=== PATIENT | male | born 1945 | race Caucasian/White ===

== ENCOUNTER 2017-01-17 13:54 | Emergency (ER) | payer OTHER ==
[~2017-01-17] VITALS: Ht 180.3 cm; Wt 114.3 kg
[~2017-01-17 13:54] MED LIST: ADULT LOW DOSE81 MG PO; ASPIRIN EC81 M1 PO; BENICAR; BENICAR HCT 401 EAC1 PO; HYDROCODON-ACE1 EAC8; MICARDIS 80 MG80 MG PO; MICARDIS HCT 81 EAC1 PO; MICARDIS HCT 81 EACH PO; PHENERGAN 25 MG25 M1 PO; POTASSIUM20; PROTANDEM; PROTANDUM; SENNA; TRAMADOL 50 MG50 MG PO; TRAZODONE 150150 M1 PO; UNISOM SLEEP AI25 MG PO
[2017-01-17] MEDS ORDERED: ZESTORETIC 20-1 EAC3 PO (15:27)
[2017-01-17 15:39] LABS: WBC 4.6 thou/uL (4.0-11.0)
[2017-01-17 15:41] LABS: ABSOLUTE NEUTROPHILS 3.5 thou/uL (1.4-8.2); BASOPHILS 0.4 % (0.0-2.0); EOSINOPHILS 0.2 % (0.0-3.0); HEMATOCRIT 48.4 % (42.0-52.0); HEMOGLOBIN 16.8 gm/dL (14.0-18.0); LYMPHOCYTES 11.5 % (24.0-44.0); MCHC 34.6 g/dL (28.0-37.0); MCV 86.7 fL (80.0-100.0); MONOCYTES 11.5 % (1.0-8.0); PLATELET COUNT 163 thou/uL (150-400); POLYS 76.4 % (36.0-66.0); RBC 5.59 mil/uL (4.50-6.00); RDW 14.4 % (10.5-14.5)
[2017-01-17 15:42] LABS: MANUAL DIFF NO
[2017-01-17 15:54] LABS: CALCIUM 8.4 mg/dL (8.5-10.1); CREATININE 1.3 mg/dL (0.7-1.3); POTASSIUM 3.7 mmol/L (3.5-5.1)
[2017-01-17 16:00] LABS: URINE BILIRUBIN NEGATIVE (Negative); URINE BLOOD NEGATIVE (Negative); URINE COLOR YELLOW; URINE GLUCOSE-RANDOM* NEGATIVE (Negative); URINE KETONES NEGATIVE (Negative); URINE NITRITE NEGATIVE (Negative); URINE PROTEIN (DIPSTICK) TRACE (Negative); URINE SPECIFIC GRAVITY >= 1.030 (1.003-1.035); URINE UROBILINOGEN 0.2 E.U./dl (0.2-1.0)
[2017-01-17] MEDS ORDERED: REGLAN 10 MG TA10 MG PO (16:42)
[2017-01-17] MEDS ORDERED: LOMOTIL TABLET1 EACH PO (16:42)
== END 2017-01-17 16:57 | disposition home or self-care (01) ==
LOC: ER 13:54
PROVIDERS: Emergency Medicine
DX: R11.2 Nausea with vomiting, unspecified (principal); R19.7 Diarrhea, unspecified; R10.9 Unspecified abdominal pain; I10 Essential (primary) hypertension; Z90.49 Acquired absence of other specified parts of digestive tract; Z95.5 Presence of coronary angioplasty implant and graft; Z96.641 Presence of right artificial hip joint; Z96.611 Presence of right artificial shoulder joint

== ENCOUNTER 2020-05-09 09:54 | Inpatient (IN) | payer OTHER ==
[~2020-05-09] VITALS: Ht 177.8 cm; Wt 110.2 kg
--- NOTE | ~2020-05-09 | EKG ---
[facility] [place] [address] ELECTROCARDIOGRAM REPORT Name: JLYUDI GILLIAMON Room #: REG [facility].#: [id number] Admission: 05/09/20 Attend Phys: Discharge: Date of : 47 Report #: [id number] THIS REPORT FOR: cc: Ernst Little MD, James A. MD Epiphany,Michael WALTERS ~ THIS REPORT FOR: //name// [facility] ED Test Date: 2020-05-09 Test Time: 10:38:31 Pat Name: YUDI PARIKH Department: Room: Gender: M Verifier Operator: jaimee : 1945 Requested By: Adebayo Edmond Order Number: [id number] MD: Measurements Intervals [place] Rate: 64 P: 0 IA: 246 QRS: -65 QRSD: 129 T: 76 QT: 414 QTc: 427 Interpretive Statements Sinus rhythm Prolonged IA interval Left bundle branch block Compared to ECG 10/16/2015 17:22:13 Left-axis deviation no longer present [email or web address] By: 1038 [facility] Epiphany EpiphanyMD /EPI
[~2020-05-09 09:54] MED LIST changes: +LOMOTIL TABLET1 EACH PO; +REGLAN 10 MG TA10 MG PO; +ZESTORETIC 20-1 EAC3 PO
[2020-05-09 09:57] VITALS: BP 190/102
[2020-05-09 10:33] LABS: ABSOLUTE NEUTROPHILS 2.9 thou/uL (1.4-8.2); BASOPHILS 0.7 % (0.0-2.0); EOSINOPHILS 1.8 % (0.0-3.0); HEMATOCRIT 49.4 % (42.0-52.0); HEMOGLOBIN 16.4 gm/dL (14.0-18.0); LYMPHOCYTES 28.1 % (24.0-44.0); MCH 27.9 pg (26.0-34.0); MCHC 33.3 g/dL (28.0-37.0); MCV 83.7 fL (80.0-100.0); MONOCYTES 10.1 % (1.0-8.0); PLATELET COUNT 224 thou/uL (150-400); POLYS 59.3 % (36.0-66.0); RDW 14.4 % (10.5-14.5); WBC 4.9 thou/uL (4.0-11.0)
[2020-05-09 10:56] LABS: APTT 32.1 Seconds (24.5-32.8); INR 1.1; PROTIME 10.8 Seconds (9.3-11.4)
[2020-05-09] MEDS ORDERED: LOSARTAN POTASS50 MG PO (11:00)
[2020-05-09 11:11] LABS: CALCIUM 9.3 mg/dL (8.5-10.1); POTASSIUM 4.1 mmol/L (3.5-5.1)
[2020-05-09] MEDS ORDERED: SILDENAFIL CIT100 MG PO (11:17)
[2020-05-09 12:58] VITALS: BP 146/99
[2020-05-09 13:15] LABS: CHOLESTEROL 162 mg/dL (<200); HDL CHOLESTEROL 40 mg/dL (>40); LDL CHOLESTEROL 97 mg/dL (<100); TC:HDL 4.1 Ratio (Not establshd); TRIGLYCERIDE 125 mg/dL (<150); VLDL 25 mg/dL (<40)
[2020-05-09 13:16] LABS: SERUM ASSESSMENT Clear
[2020-05-09 13:52] VITALS: BP 147/99
[2020-05-09 14:00] VITALS: BP 156/100
[2020-05-09 15:45] VITALS: BP 144/94
--- NOTE | 2020-05-09 16:41 | NUR ---
ARRIVES FROM ED VIA W/C, ALERT AND ORIENTED X4. PLAESANT AND NIHS AT 3. DBP ELEVATED, AND S/B DR NEUROLOGIST. OTHER VSS, ASSESSMENT CHARTED AND NEW POC INITIATED AND WILL CONTINUE TO MONITOR.
[2020-05-09 20:00] VITALS: BP 147/96
[2020-05-10] VITALS (7 sets, daily range): BP systolic 149–163; BP diastolic 68–108
--- NOTE | 2020-05-10 03:57 | NUR ---
PATIENT IS PROGRESSING SLOWLY IN HIS CARE PLAN. PATIENT HAS BEEN SLIGHTLY HYPERTENSIVE WITH ALL OTHER VITAL SIGNS STABLE. COMPLAINTS OF PAIN AND NAUSEA TREATED APPROPRIATELY THROUGH MEDICATIONS. PATIENT IS COMPLETELY ORIENTED AND ABLE TO CALL APPROPRIATELY FOR NEEDS. UP MULTIPLE TIMES TO BATHROOM WITH STANDBY ASSIST INCIDENT FREE. PATIENT IS TO HAVE MRI OF BRAIN TODAY. CONTINUE PLAN OF CARE.
--- NOTE | 2020-05-10 17:27 | NUR ---
ASSUMED CARE AT SHIFT CHANGE, ALERT AND ORIENTED X4. ASSESSMENT CHARTED. BP REMAINS HIGH, SR CRAWFORD NOTIFIED NEW MEDS ORDERS RECIEVED, AND GIVEN BP IS TRENDING DOWN. AND WILL CONTINUE WITH POC.
--- NOTE | 2020-05-11 04:41 | NUR ---
PATIENT IS PROGRESSING IN HIS CARE PLAN. VITAL SIGNS STABLE WITH PATIENT HAVING NO COMPLAINTS OF PAIN, NAUSEA, OR DIZZINESS THROUGHOUT SHIFT. FULLY ORIENTED, PATIENT IS ABLE TO CALL APPROPRIATELY FOR NEEDS AND PARTICIPATE IN CARE PLAN. PATIENT CLEARED FROM HIGH FALL RISK ON SHIFT DUE TO INCREASED STRENGTH AND ABSENCE OF SYMPTOMS AND IS UP AD CEDRIC. BLOOD PRESSURES REMAIN ELEVATED BUT NOT REQUIRING PRN MEDICINE. PATIENT SAYS HIS ANXIETY IS "BETTER" THROUGH PRN XANAX, AND IS READY FOR HIS MRI THIS MORNING. CONTINUE PLAN OF CARE.
[2020-05-11 05:00] VITALS: BP 149/84
[2020-05-11 07:42] VITALS: BP 161/92
--- NOTE | 2020-05-11 08:11 | EKG ---
[facility] [place] [address] ELECTROCARDIOGRAM REPORT Name: YUDI PARIKH Room #: 201-P ADM IN M.R.#: [id number] Admission: 05/09/20 Attend Phys: Susy Adler Discharge: Date of : 47 Report #: [id number] THIS REPORT FOR: cc: Ernst Little MD, James A. MD Santiago, Patrick MD [facility] ~ THIS REPORT FOR: //name// [facility] ED Test Date: 2020-05-09 Test Time: 10:38:31 Pat Name: YUDI PARIKH Department: Room: 201 Gender: M South Asian History Professor: [facility] : 1945 Requested By: Adebayo Edmond Order Number: [id number] MD: Min Armando Measurements Intervals [place] Rate: 64 P: 0 VA: 246 QRS: -65 QRSD: 129 T: 76 QT: 414 QTc: 427 Interpretive Statements Sinus rhythm Prolonged VA interval Left bundle branch block Compared to ECG 10/16/2015 17:22:13 Left-axis deviation no longer present Electronically Signed On 05-11-2020 8:11:25 CDT by Min Armando [email or web address] <ELECTRONICALLY SIGNED> By: Min Armando MD, FACC 05/11/20 0811 1038 1038 Min Armando MD, [facility] /EPI
[2020-05-11] MEDS ORDERED: SERTRALINE HCL50 MG PO (08:12)
[2020-05-11] MEDS ORDERED: COZAAR 50 MG TA50 M1 PO (08:12)
[2020-05-11] MEDS ORDERED: ASA81BEC PO (08:13)
[2020-05-11 12:56] VITALS: BP 148/94
[2020-05-11] MEDS ORDERED: CYMBALTA30 MG PO (15:07)
[2020-05-11] MEDS ORDERED: ASPIRIN325 PO (15:07)
[2020-05-11 15:20] VITALS: BP 145/86
--- NOTE | 2020-05-11 15:54 | NUR ---
INITIAL ASSESSMENT: Received consult. SW reviewed chart and spoke with nursing. Pt was admitted from home due to possible TIA/CVA. Pt with headaches and high BP. Neuro consulted. SW met with pt at bedside. Introduced role of SW. Pt is alert/orientated x 4. Pt lives at home with his . Prior to admission, pt was independent with ADLs. No use of DME. Pt does have a cane at home. 2 steps to enter the home and a total of 14 stairs inside. Pt had recent knee surgery and did have HH services. Pt unsure of name of HH provider. Pt's PCP is Dr. Ernst Little. Plan is for pt to return home when medically stable. SW is following to assist as needed with discharge planning.
--- NOTE | 2020-05-11 16:14 | 2DMMODE ---
[facility] [address] 2 D/M-MODE ECHOCARDIOGRAM Name: YUDI PARIKH Room #: 201-P ADM IN M.R.#: [id number] Admission: 05/09/20 Attend Phys: Susy Adler Discharge: Date of : 47 Report #: [id number] THIS REPORT FOR: cc: Ernst Little MD, James A. MD Lundgren, Craig H. MD [facility] ~ APPROVED REPORT Study performed: 05/11/2020 13:31:45 EXAM: Comprehensive 2D, Doppler, and color-flow Echocardiogram Patient Location: Echo lab Room #: 201 Status: routine BSA: 2.29 HR: 67 bpm BP: 161/92 mmHg Rhythm: NSR Other Information Study Quality: Adequate Indications Hypertension/HDD CVA Echo Enhancing Agent Indication: Rule out Shunt Agent(s) / Amount(s) Used: Agitated Saline 6 cc 2D Dimensions RVDd: 37.56 mm IVSd: 16.01 (7-11mm) LVOT Diam: 22.79 (18-24mm) LVDd: 44.64 mm PWd: 16.28 (7-11mm) Ascending Ao: 38.33 (22-36mm) LVDs: 29.99 (25-40mm) Aortic Root: 35.47 mm IVC: 22.00 mm Volumes Left Atrial Volume (Systole) Single Plane 4CH: 62.09 mL Single Plane 2CH: 60.42 mL LA ESV Index: 28.00 mL/m2 Aortic Valve [facility] [address] [address] 2 D/M-MODE ECHOCARDIOGRAM Name: YUDI PARIKH Room #: 201-P [facility] IN .R.#: [id number] Admission: 05/09/20 Attend Phys: Susy Ruiz Discharge: Date of : 47 Report #: [id number] AoV Peak Austen.: 2.39 m/s AO Peak Gr.: 22.80 mmHg LVOT Max P.49 mmHg AO Mean Gr.: 11.12 mmHg LVOT Mean P.32 mmHg AO V2 Mean: 1.52 m/s LVOT Max V: 1.05 m/s AO V2 VTI: 48.26 cm LVOT Mean V: 0.69 m/s LIZETTE (VTI): 2.03 cm2 LVOT V1 VTI: 24.05 cm LIZETTE Vmax: 1.80 cm2 SV (LVOT): 98.10 mL Mitral Valve E/A Ratio: 0.7 MV Decel. Time: 229.91 ms MV E Max Austen.: 0.71 m/s MV A Austen.: 0.96 m/s MV PHT: 66.68 ms IVRT: 128.03 ms Pulmonary Valve PV Peak Austen.: 1.09 m/s PV Peak Gr.: 4.79 mmHg Pulmonary Vein P Vein S: 0.48 m/s P Vein A: 0.27 m/s P Vein D: 0.44 m/s P Vein A Dur.: 114.2 msec P Vein S/D Ratio: 1.09 Left Ventricle The left ventricle is normal size. There is normal LV segmental wall motion. Moderate concentric left ventricular hypertrophy. The left ventricular systolic function is normal. The left ventricular ejection fraction is within the normal range. LVEF is 60-65%. Mild diastolic dysfunction is present (impaired relaxation pattern). Right Ventricle The right ventricle is normal size. The right ventricular systolic function is normal. Atria The left atrium size is normal. No shunting by contrast bubble injection The right atrium size is normal. Aortic Valve Aortic valve is mild to moderately calcified. Mild aortic regurgitation. There is mild valvular aortic stenosis. Calculated aortic valve area is 1.8 cm2 (Peak gradient of 23 mmHg, mean pressure gradient of 11 mmHg). [place] [address] 2 D/M-MODE ECHOCARDIOGRAM Name: YUDI PARIKH Room #: 201-P [facility] IN .R.#: [id number] Admission: 05/09/20 Attend Phys: Susy Ruiz Discharge: Date of : 47 Report #: [id number] Mitral Valve The mitral valve is normal in structure. Trace to mild mitral regurgitation. No evidence of mitral valve stenosis. Tricuspid Valve The tricuspid valve is normal in structure. There is no tricuspid valve regurgitation noted. Unable to assess PA pressure. Pulmonic Valve Pulmonic valve is not well visualized. There is no pulmonic valvular regurgitation. Great Vessels The aortic root is normal in size. IVC is mildly dilated at 2.2 cm. Unable to evaulate collapse, IVC was only visualized with deep inspiration. Pericardium There is no pericardial effusion. <Conclusion> The left ventricular systolic function is normal. There is normal LV segmental wall motion. Moderate concentric left ventricular hypertrophy. LVEF 60-65%. Mild diastolic dysfunction No shunting by contrast bubble injection Aortic valve is mild to moderately calcified. Mild aortic regurgitation, mild stenosis. Calculated aortic valve area is 1.8 cm2 (Peak gradient of 23 mmHg, mean pressure gradient of 11 mmHg). The mitral valve is normal in structure. Trace to mild mitral regurgitation. Pulmonary artery systolic pressure could not be reliably ascertained There is no pericardial effusion. <ELECTRONICALLY SIGNED> By: Stewart Alegria MD, FACC 05/11/20 1613 12 161 Stewart Alegria MD, FACC /INF
[2020-05-11 16:49] VITALS: BP 145/86
--- NOTE | 2020-05-11 18:15 | NUR ---
ASSUMED CARE AT SHIFT CHANGE, ALERT AND ORIENTED X4. BP MED ADJUSTED BY DR CRAWFORD, AND ORDERD MEDS GIVEN. DISCHARGE AND MEDICATION INSTRUCTION GIVEN TO PATIENT. PATIENT DISCHARGED HOME.
[2020-05-12] MEDS ORDERED: FELODIPINE 5 MG5 M1 PO (11:46)
== END 2020-05-11 18:21 | disposition home or self-care (01) | DRG 103 ==
LOC: ER 09:54 → EROBS 12:29 → 2N 12:29
PROVIDERS: Emergency Medicine; ADMIT Hospitalist; ATTEND Hospitalist
DX: G43.909 Migraine, unspecified, not intractable, without status migrainosus (principal); I69.354 Hemiplegia and hemiparesis following cerebral infarction affecting left non-dominant side; I16.0 Hypertensive urgency; E07.9 Disorder of thyroid, unspecified; I10 Essential (primary) hypertension; R93.89 Abnormal findings on diagnostic imaging of other specified body structures; F32.9 Major depressive disorder, single episode, unspecified; M31.6 Other giant cell arteritis; F41.9 Anxiety disorder, unspecified; Z96.641 Presence of right artificial hip joint; Z96.652 Presence of left artificial knee joint; Z96.611 Presence of right artificial shoulder joint; Z90.49 Acquired absence of other specified parts of digestive tract; Z79.899 Other long term (current) drug therapy
CPT/HCPCS: 10081

== ENCOUNTER 2020-05-25 13:18 | Inpatient (IN) | payer OTHER ==
[~2020-05-25] VITALS: Ht 177.8 cm; Wt 113.4 kg
--- NOTE | ~2020-05-25 | EMS ---
[address] [address] EMS Patient Care Report Name: YUDI PARIKH Room #: PRE M.RDebra#: [id number] Admission: Attend Phys: Discharge: Date of : 47 Report #: [id number] THIS REPORT FOR: //name// Report Transmitted: 05/25/2020 12:47 EMS Care Summary [facility] MED-ACT Incident [id number] @ 05/25/2020 12:37 Incident Location [address] [place] [address] Patient YUDI PARIKH Male, 74 Years 1945 Patient Address [address] [place] [address] Patient History TIA,Cardiac Murmur, Patient Allergies No known allergies, Patient Medications Losartan, Benicar, Chief Complaint Left Arm Weakness Disposition Transported No Lights/[place] Dispatch Reason Stroke/CVA Transported To [facility] Narrative [id number] was dispatched to the listed location for a code 1 stroke. Upon arrival patient was sitting up in a chair at the restaurant in the care of [facility]. Patient stated that he was sitting there at the table about to eat lunch with his friends when he had a sudden onset of numbness and weakness in [address] [address] EMS Patient Care Report Name: YUDI PARIKH Room #: PRE M.R.#: [id number] Admission: Attend Phys: Discharge: Date of : 47 Report #: [id number] his left hand that radiated up to his left shoulder. Patient stated that he had a TIA a few weeks prior on and the symptoms were similar. Patient denied being put on any blood thinners. Patient denied any chest pain, SOB, abd. pain, recent illnesses or N/V/D. Patient was able to stand and pivot with EMS assistance to the cot. Patient appeared to have high anxiety with the situation. Another CPHSS was performed in the back of the ambulance prior to leaving, neg. facial droop, neg. slurred speech, slight left arm drift but was able to keep it up and fight gravity for the 10 seconds. On arrival to the ED, patient stated that he felt much better and was not having as much weakness in his left arm but felt that it was still slightly there. A 12 lead was taken and was abnormal, patient stated the only cardiac Hx he knew of was a heart murmur. 12L was transmitted to receiving ER, no ASA was given due to no complaint of chest pain or SOB. Initial Vitals @PTAP: 98,BP: 162/96,SpO2: 94, @13:11P: 79,BP: 165/105,SpO2: 94, @12:52P: 74,R: 18,BP: 174/98,Pain: 0/10,GCS: 15,Glucose: 80,SpO2: 94,Revised Trauma: 12, @13:03P: 81,SpO2: 94,NM Suspected: false @13:13P: 80,BP: 114/81,SpO2: 94, @12:56P: 82,SpO2: 94, Assessments @13:13MENTAL:Person Oriented,Time Oriented,Event Oriented,Place Oriented,SKIN:HEENT:LUNG SOUNDS:General: No Abnormalities,Left Upper: No Abnormalities,Right Upper: No Abnormalities,Left Lower: No Abnormalities,Right Lower: No Abnormalities,ABDOMEN:General: No Abnormalities,Left Upper: No Abnormalities,Right Upper: No Abnormalities,Left Lower: No Abnormalities,Right Lower: No Abnormalities,PELVIS//GI:No Abnormalities,EXTREMITIES:Left Arm: Weakness,Right Arm: No Abnormalities,Left Leg: No Abnormalities,Right Leg: No Abnormalities,PULSE:NEURO:Weakness Left-Sided, Impression Transient Cerebral Ischemic Attack (TIA) Procedures @13:0312-Lead ECGResponse: UnchangedSucceeded@13:00Saline Lock 5cc (20 ga) Site: Hand-RightResponse: UnchangedSucceeded Timeline QUALITY ASSURANCE TESTER,BP: 162/96 M,PULSE: 98,RR: R,SPO2: 94 Ox,ETCO2: ,BG: ,PAIN: ,GCS: , 12:35,Call Received 12:35,Psap Call 12:37,Dispatched 12:37,En Route [address] [address] EMS Patient Care Report Name: YUDI PARIKH Room #: PRE ER M.R.#: [id number] Admission: Attend Phys: Discharge: Date of : 47 Report #: [id number] 12:43,On Scene 12:45,At Patient 12:52,BP: 174/98 M,PULSE: 74,RR: 18 R,SPO2: 94 Ox,ETCO2: ,B,PAIN: 0,GCS: 15, 12:56,BP: / M,PULSE: 82,RR: R,SPO2: 94 Ox,ETCO2: ,BG: ,PAIN: ,GCS: , 13:00,Saline Lock 5cc 20 ga Site: Hand-Right,Response: UnchangedSucceeded, 13:03,12-Lead ECG,Response: UnchangedSucceeded, 13:03,BP: / M,PULSE: 81,RR: R,SPO2: 94 Ox,ETCO2: ,BG: ,PAIN: ,GCS: , 13:05,Depart Scene 13:11,BP: 165/105 M,PULSE: 79,RR: R,SPO2: 94 Ox,ETCO2: ,BG: ,PAIN: ,GCS: , 13:13,BP: 114/81 M,PULSE: 80,RR: R,SPO2: 94 Ox,ETCO2: ,BG: ,PAIN: ,GCS: , 13:15,At Destination 13:45,Call Closed Disclaimer v1.1 Copyright 2020 [employer] This EMS Care Summary contains data elements from the applicable legal record (which may be displayed differently). It is designed to provide pertinent information for the following purposes: continuity of care, clinical quality, and state data reporting. The complete legal record is available to ED staff and administrators of the receiving hospital in ES's Patient Tracker. All data is provided "as is."
--- NOTE | ~2020-05-25 | HC ---
[facility] [place] [address] CONSULTATION Name: YUDI PARIKH Meliton KEYS Room #: 170-6 ADM IN ..#: [id number] Admission: 05/25/20 Attend Phys: Susy Adler Discharge: Date of : 47 Report #: [id number] THIS REPORT FOR: cc: Ernst Little MD, James A. MD Khosla, Parveen K. MD ~ DATE OF SERVICE: 05/25/2020 HISTORY OF PRESENT ILLNESS: This is a 74-year-old male patient who was evaluated by me in the Emergency Room. I talked to Dr. Pedraza as well as Dr. Whitt. This patient was admitted recently here and was seen by Dr. Michael. At that time, he had severe left-sided headache. He did undergo workup, but his MRA was nondiagnostic because of lot of artifact in it. He was hypotensive at that time and his antihypertensives were readjusted. His blood pressure has fluctuated and he came in with high blood pressure again. Today, his symptom was that his hand curled up and it became spastic. He was fully conscious during that episode. He did not have any clonic activity with it. It lasted just a few minutes and then he became better. When he came to Emergency Room, his blood pressure was high. It is still high at 108/90. His blood pressure medication has been readjusted. He has polycythemia, but does not look like he is significantly polycythemic at the moment. He does not have any history of seizure. He does have a history of migraine, but it is not clear whether they were classic migraine. At this time, he did have some headache, but the headache was more generalized rather than focal, it was before. A 14-point review was also carried out from the record and it looks like this patient was admitted here recently and had a pretty significant workup. Although the workup indicated that MRA was not very diagnostic. He says that he is having a lot of anxiety. He was given some medication for anxiety. He is also under a lot of stress. She never took those medications. From the record, it looks like it was Cymbalta. His sed rate was checked the last time to rule out temporal arteritis and it was less than 1. This was his relevant 14-point review of systems. He is not complaining of any ENT, cardiac, respiratory, GI, , musculoskeletal, constitutional, dermatological, hematological, psychiatric, throat, allergic symptom associated with present symptomatology. PAST MEDICAL HISTORY: Positive for spells, but they were different than this. FAMILY HISTORY: Unremarkable. SOCIAL HISTORY: He does use alcohol, but does not smoke. PHYSICAL EXAMINATION: Indicate he is alert, responsive, able to follow simple and complex command. His speech, concentration, fund of knowledge and memory is at his baseline. Cranial nerve examination 2-12 is unremarkable. Neuromuscular examination is symmetrical. There is no meningeal sign. There is no carotid [address] [address] CONSULTATION Name: YUDI PARIKH JR Room #: 170-6 ADM IN M.R.#: [id number] Admission: 05/25/20 Attend Phys: Susy Adler Discharge: Date of : 47 Report #: [id number] bruit. I could not look at the patient's fundus. Cardiorespiratory examinations appear noncontributory. IMPRESSION: I am not sure what the etiology of the patient's symptom is. It is possible that he is having more than one etiology. This patient may be hypertensive encephalopathy and this TIA or seizure-like symptoms may be just part of it. It is also possible this patient had another TIA or stroke, the last time stroke was missed because MRI can be negative. Aneurysms and all is less likely, but is not possible to exclude that on the basis of MRA we had, because that is pretty suboptimal. Migraine and seizures are all possible, but considered less likely. RECOMMENDATIONS: 1. I will suggest repeating the imaging study of MRI and MRA. I am going to do a CT angiogram, but the patient is reluctant because his creatinine was 1.5. He does not want to do that, but will agreed to do the MRA. 2. I will check an EEG also. 3. The main thing is to control his blood pressure because it looks like he is susceptible to hypertensive encephalopathy even on lower level of hypertension that produces TIA or seizure-like symptoms. As far as migraine is concerned, I will suggest considering a dose of Topamax something like 25 mg p.o. daily. I discussed that with him and we will discuss more after the other workup is available. More than 50 minutes of time was spent taking care of this patient today and majority of that time was spent counseling and coordinating and I talked to multiple health day care director in that regard. By: 164 12 Frandy Salas MD /nt
[~2020-05-25 13:18] MED LIST changes: +ASA81BEC PO; +ASPIRIN325 PO; +COZAAR 50 MG TA50 M1 PO; +CYMBALTA30 MG PO; +FELODIPINE 5 MG5 M1 PO; +LOSARTAN POTASS50 MG PO; +SERTRALINE HCL50 MG PO; +SILDENAFIL CIT100 MG PO
[2020-05-25 13:21] VITALS: BP 174/94
[2020-05-25] MEDS ORDERED: TRAZODONE HCL100 MG PO (14:09)
[2020-05-25 15:04] LABS: ABSOLUTE NEUTROPHILS 4.8 thou/uL (1.4-8.2); BASOPHILS 0.5 % (0.0-2.0); EOSINOPHILS 1.7 % (0.0-3.0); HEMATOCRIT 50.4 % (42.0-52.0); HEMOGLOBIN 16.8 gm/dL (14.0-18.0); LYMPHOCYTES 18.5 % (24.0-44.0); MCH 28.1 pg (26.0-34.0); MCHC 33.4 g/dL (28.0-37.0); MCV 83.9 fL (80.0-100.0); MONOCYTES 8.5 % (1.0-8.0); PLATELET COUNT 223 thou/uL (150-400); POLYS 70.8 % (36.0-66.0); RDW 15.1 % (10.5-14.5); WBC 6.8 thou/uL (4.0-11.0)
[2020-05-25 15:20] LABS: CALCIUM 9.3 mg/dL (8.5-10.1); CREATININE 0.9 mg/dL (0.7-1.3); POTASSIUM 3.8 mmol/L (3.5-5.1)
[2020-05-25 15:24] LABS: ALBUMIN 3.9 g/dL (3.4-5.0); TOTAL BILIRUBIN 0.7 mg/dL (0.2-1.0); TOTAL PROTEIN 7.5 g/dL (6.4-8.2)
[2020-05-25 20:41] VITALS: BP 136/87
--- NOTE | 2020-05-26 07:34 | EKG ---
[facility] [place] [address] ELECTROCARDIOGRAM REPORT Name: YUDI PARIKH Room #: 170-6 ADM IN M.R.#: [id number] Admission: 05/25/20 Attend Phys: Susy Adler Discharge: Date of : 47 Report #: [id number] THIS REPORT FOR: cc: Ernst Little MD, James A. MD Santiago, Patrick MD [facility] ~ THIS REPORT FOR: //name// [facility] Test Date: 2020-05-25 Test Time: 13:30:42 Pat Name: YUDI PARIKH Department: Room: [facility] Gender: M Produce Associate: leonila : 1945 Requested By: Aneesh Pedraza Order Number: [id number] MD: Min Armando Measurements Intervals [place] Rate: 79 P: 21 MO: 237 QRS: -64 QRSD: 134 T: 82 QT: 395 QTc: 453 Interpretive Statements Sinus rhythm Prolonged [place] interval Left bundle branch block Compared to ECG 05/09/2020 10:38:31 No significant changes Electronically Signed On 05-26-2020 7:34:08 CDT by Min Armando [email or web address] <ELECTRONICALLY SIGNED> By: Min Armando MD, FACC 05/26/20 0734 29 1330 Min Armando MD, FACC /EPI
[2020-05-26 09:14] VITALS: BP 174/96
[2020-05-26] MEDS ORDERED: PLAVIX 75 MG TA75 MG PO (13:33)
[2020-05-26 14:57] VITALS: BP 174/96
[2020-05-26 15:54] VITALS: BP 166/93
== END 2020-05-26 15:54 | disposition home or self-care (01) | DRG 69 ==
LOC: ER 13:18 → EROBS 16:02
PROVIDERS: Emergency Medicine; ADMIT Hospitalist; ATTEND Hospitalist
DX: G45.9 Transient cerebral ischemic attack, unspecified (principal); Z96.652 Presence of left artificial knee joint; I16.0 Hypertensive urgency; Z96.641 Presence of right artificial hip joint; I10 Essential (primary) hypertension; Z96.611 Presence of right artificial shoulder joint; Z20.828 Contact with and (suspected) exposure to other viral communicable diseases; Z88.8 Allergy status to other drugs, medicaments and biological substances; I48.91 Unspecified atrial fibrillation; Z79.82 Long term (current) use of aspirin; Z90.49 Acquired absence of other specified parts of digestive tract; Z79.899 Other long term (current) drug therapy